=== PATIENT | female | born 1985 | race Caucasian/White ===

== ENCOUNTER → 2016-05-11 | Outpatient (CLI) | payer OTHER ==
[~2016-05-11] MED LIST: ESCI10TA PO; GABA600T PO; INFL1INJ53 IM; NICO14DI T-DERMAL; NICO21DI2 T-DERMAL; NICO7DIS2 T-DERMAL; PRENTAB85 PO
== END ==
LOC: HPND 13:29
PROVIDERS: ATTEND Family Medicine
DX: Z34.90 Encounter for supervision of normal pregnancy, unspecified, unspecified trimester (principal)
CPT/HCPCS: 76801

== ENCOUNTER → 2016-06-09 | Outpatient (CLI) | payer MEDICAID ==
[~2016-06-09] MED LIST changes: -ESCI10TA PO; -INFL1INJ53 IM; -NICO7DIS2 T-DERMAL
== END ==
LOC: HPND 10:55
PROVIDERS: ATTEND Family Medicine
DX: Z34.90 Encounter for supervision of normal pregnancy, unspecified, unspecified trimester (principal)
CPT/HCPCS: 36416; 76813

== ENCOUNTER → 2016-07-31 | Outpatient (CLI) | payer MEDICAID, OTHER | LOC: HPND 08:48 | PROVIDERS: ATTEND Family Medicine | DX: Z36 Encounter for antenatal screening of mother (principal) | CPT/HCPCS: 76805 ==

== ENCOUNTER → 2016-09-29 | Outpatient (CLI) | payer MEDICAID ==
[~2016-09-29] MED LIST changes: +GABA100C4 PO; -GABA600T PO; -NICO14DI T-DERMAL; -NICO21DI2 T-DERMAL; +ONDA1TAB17 PO; +TRAZ50TA12 PO
== END ==
LOC: HPND 13:23
PROVIDERS: ATTEND Family Medicine
DX: O35.1XX0 Maternal care for (suspected) chromosomal abnormality in fetus, not applicable or unspecified (principal)
CPT/HCPCS: 76816

== ENCOUNTER 2016-09-30 14:34 | Emergency (ER) | payer MEDICAID ==
[~2016-09-30 14:34] MED LIST changes: -ONDA1TAB17 PO
[2016-09-30 14:42] VITALS: BP 107/83
[2016-09-30 14:45] VITALS: RESP 18; TEMP 97.7
--- NOTE | 2016-09-30 14:46 | PD ---
HPI Chief Complaint N/V Date Seen: Sep 30, 2016 Time Seen: 14:50 Travel History International Travel<30 Days: No Contact w/Intl Traveler<30Days: No History of Present Illness HPI 31-year-old at 28/6 weeks gestation presenting with a 10 hour history of nausea and vomiting. Started this morning, nonbloody, nonbilious. Since then , she has vomited about 10 or more times. Denies vaginal bleeding, contractions , leakage of fluid. Endorses movement. She endorses low-grade fever starting this morning as well. Denies recent unusual exposure to foods, travel. She did use marijuana last night but denies use of any other substances. Review of systems is positive for diffuse pain (including chest pain, back pain, abdominal pain), mild shortness of breath. 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 History of IV drug use but has been clean for 2 years. Follows with a psychiatrist at [facility]. Smokes 1ppd x 14 years. No other drug or alcohol use. Alcohol Use: No Tobacco Use: Yes Substance Abuse: No (prior IVDU, clean for 2 years; marijuana use yesterday) Allergies-Medications (Allergen,Severity, Reaction): Coded Allergies: No Known Allergies (Verified , 09/17/16) Home Meds Active Scripts Ondansetron 8 Mg Tab8 Mg PO TID #30 TAB Ref 0 Prov:Chase Choudhury MD R1 09/30/16 Trazodone 50 Mg Tab50 Mg PO HS #30 TAB Ref 0 Prov:Soila Montilla MD R2 09/17/16 Gabapentin 100 Mg [id number] Mg PO TID #90 CAP Ref 3 Prov:Soila Montilla MD R2 09/17/16 Vit W/ Ferrous Fumara (Pnv Plus Multivi 27-1 mg)1 Tab Tab1 Tab PO DAILY #90 TAB Ref 4 Prov:Soila Montilla MD R2 04/29/16 Review of Systems Except as stated in HPI: all other systems reviewed are Neg Physical Exam Vital Signs Date Time Temp Pulse Resp B/P Pulse Ox O2 Delivery O2 Flow Rate FiO2 09/30/16 14:45 97.7 18 09/30/16 14:42 107/83 Current Medications Medications (Trade) Dose Ordered Sig/Marcela Route PRN Reason Start Time Stop Time Status Last Admin Dose Admin Lactated Ringer's (Lr 1000 ml Inj) 1,000 ml @ 999 mls/hr BOLUS ONCE IV 09/30/16 15:00 09/30/16 16:00 UNV Metoclopramide HCl (Reglan Inj) 10 mg ONCE ONCE IV PUSH 09/30/16 15:00 09/30/16 15:01 UNV Narrative GENERAL: Well-nourished, well-developed patient. SKIN: Warm and dry. HEAD: Normocephalic and atraumatic. EYES: No scleral icterus. No injection or drainage. ENT: No nasal drainage noted. Mucous membranes pink. Airway patent. CARDIOVASCULAR: Regular rate and rhythm without murmurs, gallops, or rubs. RESPIRATORY: Breath sounds equal bilaterally. No accessory muscle use. BACK: No CVA tenderness ABDOMEN/GI: Abdomen soft, mildly tender to palpation diffusely, no rebound, no guarding GENITOURINARY: Cervix: posterior Dilation: closed Effacement: thick Presentation: high Membranes: intact Contractions: none FHT's: 130s EXTREMITIES: No cyanosis or edema. NEUROLOGICAL: Awake and alert. Motor and sensory grossly within normal limits. Normal speech. Data Data Vital Signs Reviewed: Yes MDM Medical Record Reviewed: Yes Narrative Course / MDM 31-year-old at 28/6 weeks gestation presenting with nausea and vomiting #1 IUP heart tones reassuring #2 nausea/vomiting Differential diagnosis including gastroenteritis, urinary tract infection/ pyelonephritis, marijuana use, nausea and vomiting of UA negative Urine drug screen positive for marijuana - Reglan 10 mg IV - Lactated Ringer's 1000 mL bolus - 50 g fentanyl IV for pain #3 abdominal pain Differential diagnoses round ligament pain, substance abuse, UTI, malingering; not in labor Urinalysis negative -Treat pain as above Update: BMP within normal limits, patient improved clinically with Reglan and fluid bolus and fentanyl. Stable for discharge with Zofran tablets as needed, small frequent meals encouraged, marijuana cessation encouraged, follow-up with PCP Diagnosis Diagnosis: Primary Impression: Nausea and vomiting during Additional Impressions: Marijuana use Abdominal pain affecting Ruled Out: UTI (urinary tract infection), labor Disposition: 01 DISCHARGE HOME Condition: Stable Scripts Ondansetron 8 Mg Tab8 Mg PO TID #30 TAB Ref 0 Prov:Chase Choudhury MD R1 09/30/16 Patient Instructions: Nausea and Vomiting in (ED) Departure Forms: Tests/Procedures, Work Release Enter return to work date: Oct 02, 2016 Chase Choudhury MD R1 Sep 30, 2016 14:46
[2016-09-30] MEDS ORDERED: LACTATED RINGER'S 1000 ML INJ 1,000 ML IV ONE (15:00)
[2016-09-30] MEDS ORDERED: METOCLOPRAMIDE HCL 10 MG/2 ML VIAL IV PUSH ONE (15:00)
[2016-09-30 15:19] LABS: BACTERIA, URINE RARE /hpf; BLOOD, URINE NEG (NEG); COMMENT (UR) CULT NOT INDICATED; CULTURE IF INDICATED CULT NOT INDICATED; GLUCOSE,URINE NEG (NEG); KETONE, URINE NEG (NEG); NITRITE,URINE NEG (NEG); SQUAMOUS EPITHELIAL CELL URINE 2 /hpf (0-5); URINE COLOR YELLOW (YELLW/STRAW)
[2016-09-30 15:33] LABS: AMPHETAMINE, URINE NEG (NEG); BARBITURATES, URINE NEG (NEG); COCAINE, URINE NEG (NEG)
[2016-09-30] MEDS ORDERED: ONDA1TAB17 PO (15:44)
[2016-09-30 15:57] VITALS: BP 97/52; PULSE 64
[2016-09-30 15:58] LABS: BICARBONATE 23.3 MEQ/L (21.0-32.0)
[2016-10-07 11:44] LABS: OBMETHADONE UR NEG (NEG); PHENCYCLIDINE URINE NEG (NEG)
[2016-10-07 11:45] LABS: BATH SALTS (MDPV) UR NEG (NEG); ECSTASY (MDMA) UR NEG (NEG); HEROIN (6-ACETYLMORPHINE) UR NEG (NEG); K2 SPICE UR NEG (NEG); OXYCODONE (PERCODAN) NEG (NEG)
[2016-10-07 11:47] LABS: GABAPENTIN UR POS (NEG)
[2016-10-07 11:48] LABS: HYDROMORPHONE U NEG (NEG)
[2016-10-13] MEDS ORDERED: GABA100C4 PO (15:59)
[2016-10-13] MEDS ORDERED: TRAZ50TA12 PO (15:59)
[2016-10-13] MEDS ORDERED: ADACINJ3 IM (16:01)
[2016-10-13] MEDS ORDERED: ZOFR4TAB3 SL (16:03)
== END 2016-09-30 17:06 | disposition home or self-care (01) ==
LOC: HOBED 14:34
DX: O21.9 Vomiting of pregnancy, unspecified (principal); O99.321 Drug use complicating pregnancy, first trimester; R06.02 Shortness of breath; R07.9 Chest pain, unspecified; R10.9 Unspecified abdominal pain; M54.9 Dorsalgia, unspecified; K75.9 Inflammatory liver disease, unspecified; O99.333 Smoking (tobacco) complicating pregnancy, third trimester; Z79.899 Other long term (current) drug therapy
CPT/HCPCS: 36415; 80048; 80307; 81001; 96361; 96374; 96375; 99284; G0481; J2765; J3010; J7120

== ENCOUNTER 2016-10-15 16:25 | Emergency (ER) | payer MEDICAID ==
[~2016-10-15 16:25] MED LIST changes: +ONDA1TAB17 PO; +ZOFR4TAB3 SL
[2016-10-15 16:50] VITALS: BP 151/72; PULSE 68
[2016-10-15 16:55] VITALS: BP 111/86; PULSE 65; PULSE 71; O2SAT 100
[2016-10-15] MEDS ORDERED: LACTATED RINGER'S 1000 ML INJ 500 ML IV ONE (16:59)
[2016-10-15 17:00] VITALS: RESP 20
[2016-10-15] MEDS ORDERED: ONDANSETRON HCL 4 MG/2 ML VIAL IV ONE (17:00)
[2016-10-15] MEDS ORDERED: METOCLOPRAMIDE HCL 10 MG/2 ML VIAL IV PUSH ONE (17:00)
[2016-10-15] MEDS ORDERED: ACETAMINOPHEN 325 MG TAB PO ONE (17:00)
--- NOTE | 2016-10-15 17:32 | PD ---
HPI Chief Complaint Intractable nausea and vomiting, chest pain, abdominal pain Date Seen: Oct 15, 2016 Travel History International Travel<30 Days: No Contact w/Intl Traveler<30Days: No Known Affected Area: No History of Present Illness HPI Patient is a 31-year-old at 31 weeks and 0 days who presents with 2 weeks of nausea and vomiting, chest pain, abdominal pain. She reports that her symptoms started intermittently about 2 weeks ago. She tried smoking marijuana at that time, which did not help. She reports that the only thing that seemed to help her hot showers. She reports that her symptoms are on for a few hours and off maybe for an entire day. Today, she had nausea, vomiting, pain all day since 8 AM, so she decided to come in. She describes her chest pain as located around the neck and her abdominal pain as mostly epigastric but also diffuse. She describes her pain as burning and cramping. 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 She is in recovery at [facility]. She also has a history of hepatitis C. Obstetric History Obstetric History Patient is a . She reports that she has had 2 abortions, one miscarriage, one daughter who was born 2 weeks early via with a weight of 5 pounds and 8 ounces. Past Surgical History Narrative Surgical , cholecystectomy Family History Family History: Negative Social History Narrative Social History Patient reports smoking half a pack per day. Alcohol Use: No Tobacco Use: Yes Substance Abuse: No Allergies-Medications (Allergen,Severity, Reaction): Coded Allergies: No Known Allergies (Verified , 10/13/16) Home Meds Active Scripts Quetiapine XR (Seroquel XR)150 Mg [id number] Mg PO DAILY #60 TAB Ref 0 Take 150mg on first day then 300mg PO daily. Prov:Soila Montilla MD R2 10/15/16 Ondansetron Odt (Zofran Odt)4 Mg Tab4 Mg SL Q8HR PRN (Nausea/Vomiting) #30 TAB Ref 0 Prov:Soila Montilla MD R2 10/13/16 Gabapentin 100 Mg [id number] Mg PO TID #180 CAP Ref 3 Prov:Soila Montilla MD R2 10/13/16 Trazodone 50 Mg Tab50 Mg PO HS #30 TAB Ref 3 Prov:Soila Montilla MD R2 10/13/16 Ondansetron 8 Mg Tab8 Mg PO TID #30 TAB Ref 0 Prov:Chase Choudhury MD R1 09/30/16 Vit W/ Ferrous Fumara (Pnv Plus Multivi 27-1 mg)1 Tab Tab1 Tab PO DAILY #90 TAB Ref 4 Prov:Soila Montilla MD R2 04/29/16 Discontinued Scripts Olanzapine 10 Mg Tab10 Mg PO DAILY #30 TAB Ref 0 Prov:Soila Montilla MD R2 10/15/16 Trazodone 50 Mg Tab50 Mg PO HS #30 TAB Ref 0 Prov:Soila Montilla MD R2 09/17/16 Gabapentin 100 Mg [id number] Mg PO TID #90 CAP Ref 3 Prov:Soila Montilla MD R2 09/17/16 Review of Systems General / Constitutional: No: Fever Cardiovascular: Chest Pain or Discomfort Gastrointestinal: Nausea, Vomiting, Abdominal Pain Physical Exam 111/86, 65-70, 98.3, 99-100% on room air Narrative GENERAL: Well-nourished, well-developed patient. SKIN: Warm and dry. HEAD: Normocephalic and atraumatic. EYES: No scleral icterus. No injection or drainage. ENT: No nasal drainage noted. Mucous membranes pink. Airway patent. NECK: Supple, trachea midline. No JVD. CARDIOVASCULAR: Regular rate and rhythm without murmurs, gallops, or rubs. RESPIRATORY: Breath sounds equal bilaterally. No accessory muscle use. ABDOMEN/GI: Abdomen soft, non-tender, bowel sounds present, no rebound, no guarding Gravid to 31 weeks size GENITOURINARY: External Genitalia: intact and normal in appearance Cervix: posterior Dilatation: closed Effacement: thick Station: -3 Membranes: [intact] Uterine Contractions: none FHT's: difficult to trace 2/2 pt movement Category: Cat I Baseline: 125 Reactive: reactive Variability: moderate Decels: none EXTREMITIES: No cyanosis or edema. BACK: Nontender without obvious deformity. No CVA tenderness. NEUROLOGICAL: Awake and alert. Motor and sensory grossly within normal limits. Five out of 5 muscle strength in all muscle groups. Normal speech. Data Data Vital Signs Reviewed: Yes Orders Vital Signs (Adult) .ON ADMISSION (10/15/16 16:59) ^ Labor Status (10/15/16 16:59) Urinalysis - C+S If Indicated (10/15/16 16:59) ^ Non Stress Test (10/15/16 16:59) ^ Hydration (10/15/16 16:59) Acetaminophen (Tylenol) (10/15/16 17:00) Ondansetron Inj (Zofran Inj) (10/15/16 17:00) Ob/Psych Drug Screen, Urine (10/15/16 16:59) Drug Screen, Random Urine (10/15/16 16:59) Metoclopramide Inj (Reglan Inj) (10/15/16 17:00) Lactated Ringer's 1000 Ml Inj (Lr 1000 M (10/15/16 16:59) Fentanyl Inj (Fentanyl Inj) (10/15/16 17:15) MDM Plan Patient is a 31-year-old at 31 weeks and 0 days with a 2 year history of being in recovery for opiates and alcohol who presents with 2 weeks of nausea and vomiting, chest pain, abdominal pain. 1. nausea and vomiting, chest pain, abdominal pain. UDS UA LR IV bolus Tylenol PO If ineffective, fentanyl 25 g IV Zofran and Reglan IV Monitor vital signs Monitor labor status Monitor heart rate Seen and discussed with Dr. Vasquez. D/w Dr. Montilla. Decided to give Seroquel 50mg po x1 and f/u tomorrow in clinic. Diagnosis Diagnosis: Primary Impression: Intractable nausea and vomiting Additional Impressions: Abdominal pain Abdominal pain affecting Ruled Out: labor Disposition: 01 DISCHARGE HOME Condition: Dhiraj Rizzo MD R1 Oct 15, 2016 17:32
[2016-10-15] MEDS ORDERED: OLAN10TA PO (17:47)
[2016-10-15] MEDS ORDERED: QUET150XR PO (17:54)
[2016-10-15] MEDS ORDERED: QUEtiapine FUMARATE 25 MG TAB PO ONE (18:00)
[2016-10-15 18:32] VITALS: RESP 18
[2016-10-15 19:24] LABS: BLOOD, URINE NEG (NEG); COMMENT (UR) CULT NOT INDICATED; CULTURE IF INDICATED CULT NOT INDICATED; GLUCOSE,URINE NEG (NEG); KETONE, URINE 150 mg/dL (NEG); NITRITE,URINE NEG (NEG); SQUAMOUS EPITHELIAL CELL URINE 5 /hpf (0-5); URINE COLOR YELLOW (YELLW/STRAW)
[2016-10-15 19:47] LABS: AMPHETAMINE, URINE NEG (NEG); BARBITURATES, URINE NEG (NEG); COCAINE, URINE NEG (NEG)
[2016-10-16] MEDS ORDERED: GABA300C5 PO (16:02)
[2016-10-20] MEDS ORDERED: AUGM500T7 PO (14:48)
[2016-10-21 12:01] LABS: ECSTASY (MDMA) UR NEG (NEG); HEROIN (6-ACETYLMORPHINE) UR NEG (NEG); OBMETHADONE UR NEG (NEG); PHENCYCLIDINE URINE NEG (NEG)
[2016-10-21 12:02] LABS: BATH SALTS (MDPV) UR NEG (NEG); GABAPENTIN UR POS (NEG); HYDROMORPHONE U NEG (NEG); K2 SPICE UR NEG (NEG); OXYCODONE (PERCODAN) NEG (NEG)
== END 2016-10-15 18:51 | disposition home or self-care (01) ==
LOC: HOBED 16:25
DX: O21.9 Vomiting of pregnancy, unspecified (principal); O26.899 Other specified pregnancy related conditions, unspecified trimester; R10.9 Unspecified abdominal pain; R07.9 Chest pain, unspecified; B19.20 Unspecified viral hepatitis C without hepatic coma; O99.333 Smoking (tobacco) complicating pregnancy, third trimester; Z3A.31 31 weeks gestation of pregnancy; Z79.899 Other long term (current) drug therapy
CPT/HCPCS: 80307; 81001; 96374; 96375; 99284; G0481; J2405; J2765; J3010; J7120

== ENCOUNTER 2016-10-22 17:54 | Emergency (ER) | payer MEDICAID ==
[~2016-10-22 17:54] MED LIST changes: +AUGM500T7 PO; -GABA100C4 PO; +GABA300C5 PO; +QUET150XR PO
--- NOTE | 2016-10-22 19:14 | PD ---
HPI Chief Complaint Abdominal pain, low back pain, cough Date Seen: Oct 22, 2016 Time Seen: 19:00 Travel History International Travel<30 Days: No Contact w/Intl Traveler<30Days: No Known Affected Area: No History of Present Illness HPI Michelle Villagran is a very pleasant 31 year old woman at 32/0 weeks gestation presents to OB ED with complaints of a cough since this past Wednesday and abdominal and low back pain since yesterday. She states she was seen at [facility] this past Wednesday and felt fine without a cough. Later that day she started to develop a cough; she states this has been productive sometimes with green phlegm. Does endorse some SOB and nasal congestion. Denies fevers. She states her abdominal pain is located laterally on both sides and she is also feeling low back pain slightly worse than her baseline low back pain. She denies dysuria , frequency, or urgency. She denies LOF or VB. Endorses +FM. 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 She is in recovery at [facility] [employer]. She also has a history of hepatitis C. Obstetric History Obstetric History Patient is a . She reports that she has had 2 abortions, one miscarriage, one daughter who was born 2 weeks early via with a weight of 5 pounds and 8 ounces. Past Surgical History Narrative Surgical , cholecystectomy Family History Family History: Negative Social History Alcohol Use: No Tobacco Use: Yes (Admits to smoking 1/2 PPD) Substance Abuse: No Allergies-Medications (Allergen,Severity, Reaction): Coded Allergies: No Known Allergies (Verified , 10/20/16) Home Meds Active Scripts Loratadine (Claritin)10 Mg Cap10 Mg PO DAILY #7 CAP Ref 0 Prov:Jackson Nunez MD R2 10/22/16 Hydrocodone-Chlorpheniramine 12 HR Liq (Tussionex Pennkinetic Ext 12 HR Liq)10- 8 Mg/5 Ml Susp2.5 Ml PO Q12H PRN (COUGH AND/OR COLD SYMPTOMS) #25 ML Ref 0 Prov:Jackson Nunez MD R2 10/22/16 Azithromycin (Zithromax Z-Simon)250 Mg [id number] Mg PO DIRECTED #1 DSPK Ref 0 500 MG (2 tabs) day 1, then 1 tab days 2-5. Prov:Jackson Nunez MD R2 10/22/16 Amoxicillin-Clavulanate (Augmentin)500-125 mg [id number] Mg PO BID #14 TAB Ref 0 Prov:Soila Montilla MD, R3 10/20/16 Gabapentin 300 Mg [id number] Mg PO TID #90 CAP Ref 3 Prov:Soila Montilla MD, R3 10/16/16 Quetiapine XR (Seroquel XR)150 Mg [id number] Mg PO DAILY #60 TAB Ref 0 Take 150mg on first day then 300mg PO daily. Prov:Soila Montilla MD, R3 10/15/16 Ondansetron Odt (Zofran Odt)4 Mg Tab4 Mg SL Q8HR PRN (Nausea/Vomiting) #30 TAB Ref 0 Prov:Soila Montilla MD, R3 10/13/16 Trazodone 50 Mg Tab50 Mg PO HS #30 TAB Ref 3 Prov:Soila Montilla MD, R3 10/13/16 Ondansetron 8 Mg Tab8 Mg PO TID #30 TAB Ref 0 Prov:Chase Choudhury MD R2 09/30/16 Vit W/ Ferrous Fumara (Pnv Plus Multivi 27-1 mg)1 Tab Tab1 Tab PO DAILY #90 TAB Ref 4 Prov:Soila Montilla MD, R3 04/29/16 Discontinued Scripts Gabapentin 300 Mg [id number] Mg PO TID #90 CAP Ref 3 Prov:Soila Montilla MD, R3 10/16/16 Gabapentin 100 Mg [id number] Mg PO TID #180 CAP Ref 3 Prov:Soila Montilla MD, R3 10/13/16 Olanzapine 10 Mg Tab10 Mg PO DAILY #30 TAB Ref 0 Prov:Soila Montilla MD, R3 10/15/16 Review of Systems General / Constitutional: No: Fever HENT: No: Headaches Respiratory: Cough, Short of Breath, No: Wheezing Gastrointestinal: Abdominal Pain Genitourinary: No: Urgency, Frequency, Dysuria Physical Exam Narrative GENERAL: Well-nourished, well-developed patient. SKIN: Warm and dry. HEAD: Normocephalic and atraumatic. EYES: No scleral icterus. No injection or drainage. ENT: No nasal drainage noted. Mucous membranes pink. Airway patent. NECK: Supple, trachea midline. No JVD. CARDIOVASCULAR: Regular rate and rhythm without murmurs, gallops, or rubs. RESPIRATORY: Rhonchi left lower and left mid lung field. Scattered expiratory wheezing. No increased WOB. ABDOMEN/GI: Abdomen soft, non-tender, no rebound, no guarding Gravid to 32 weeks size GENITOURINARY: External Genitalia: [-] Cervix: [-] Dilatation: [-] Effacement: [-] Station: [-] Presentation: [-] Membranes: [intact] Uterine Contractions: none on tocometer FHT's: Category: I Baseline: 120s Reactive: yes Variability: moderate Decels: none EXTREMITIES: No cyanosis or edema. BACK: Nontender without obvious deformity. No CVA tenderness. NEUROLOGICAL: Awake and alert. Motor and sensory grossly within normal limits. Normal speech. Data Data Vital Signs Reviewed: Yes Orders Vital Signs (Adult) .ON ADMISSION (10/22/16 19:10) ^ Labor Status (10/22/16 19:10) ^ Hydration (10/22/16 19:10) MDM Medical Record Reviewed: Yes Plan Very pleasant 31 year old woman at 32/0 weeks gestation presented with complaints of a productive cough x3 days in addition to abdominal and low back pain x1 day. Patient with rhonchi left lung covarrubias. 1. Pneumonia - Prescribe Z-pack - Will give prescription for Tussionex for relief of cough and Claritin for URI symptoms - Follow up with PCP Dr. Montilla next routine visit - Encouraged adequate PO hydration - Advised calling [facility] or return visit to OB ED if symptoms worsen 2. IUP - Category I tracing - No contractions on tocometer - No LOF or VB. +FM. 3. Low back pain - Urine dipstick negative - Tylenol prn pain dw Dr. Vasquez; sdw Dr. Padilla Diagnosis Diagnosis: Primary Impression: Pneumonia Additional Impression: Low back pain Disposition: 01 DISCHARGE HOME Condition: Stable Scripts Loratadine (Claritin)10 Mg Cap10 Mg PO DAILY #7 CAP Ref 0 Prov:Jackson Nunez MD R2 10/22/16 Azithromycin (Zithromax Z-Simon)250 Mg [id number] Mg PO DIRECTED #1 DSPK Ref 0 500 MG (2 tabs) day 1, then 1 tab days 2-5. Prov:Jackson Nunez MD R2 10/22/16 Hydrocodone-Chlorpheniramine 12 HR Liq (Tussionex Pennkinetic Ext 12 HR Liq)10- 8 Mg/5 Ml Susp2.5 Ml PO Q12H PRN (COUGH AND/OR COLD SYMPTOMS) #25 ML Ref 0 Prov:Jackson Nunez MD R2 10/22/16 Jackson Nunez MD R2 Oct 22, 2016 19:14
[2016-10-22] MEDS ORDERED: ZITHTAB PO ×2 (19:34→19:42)
[2016-10-22] MEDS ORDERED: TUSSSUS2 PO (19:34)
[2016-10-22] MEDS ORDERED: CLAR10CA3 PO ×2 (19:34→19:42)
[2016-11-13] MEDS ORDERED: QUET150XR PO (16:17)
[2016-11-18] MEDS ORDERED: QUET150XR PO (13:43)
[2016-11-19] MEDS ORDERED: QUET150XR PO (13:36)
[2016-11-20] MEDS ORDERED: CEPH-460 PO (09:43)
[2016-12-02] MEDS ORDERED: QUET-89 PO (14:29)
[2016-12-03] MEDS ORDERED: ONDA1TAB17 PO (13:57)
[2016-12-03] MEDS ORDERED: PANT40TA3 PO (13:57)
[2016-12-23] MEDS ORDERED: LITH300C2 PO (10:48)
[2016-12-23] MEDS ORDERED: GABA800T PO (10:51)
[2016-12-23] MEDS ORDERED: NORE1TAB PO (10:53)
== END 2016-10-22 19:47 | disposition home or self-care (01) ==
LOC: HOBED 17:54
DX: O99.513 Diseases of the respiratory system complicating pregnancy, third trimester (principal); J18.9 Pneumonia, unspecified organism; O98.413 Viral hepatitis complicating pregnancy, third trimester; B19.20 Unspecified viral hepatitis C without hepatic coma; O99.333 Smoking (tobacco) complicating pregnancy, third trimester; F17.200 Nicotine dependence, unspecified, uncomplicated; M54.5 Low back pain; Z3A.32 32 weeks gestation of pregnancy
CPT/HCPCS: 99284

== ENCOUNTER 2016-11-25 17:56 | Emergency (ER) | payer MEDICAID ==
[~2016-11-25] VITALS: Ht 162.6 cm; Wt 59.4 kg
[~2016-11-25 17:56] MED LIST changes: -AUGM500T7 PO; +CEPH-460 PO
--- NOTE | 2016-11-25 19:52 | PD ---
HPI Travel History International Travel<30 Days: No Contact w/Intl Traveler<30Days: No Known Affected Area: No History of Present Illness HPI at 36w 6d, DELFINO 10, presents with c/o lower abdominal pressure and decreased movement. Reports movement upon arrival to [facility]. Denies contractions/LOF/VB. No urinary or bowel problems. Para: 1 : 5 Allergies-Medications (Allergen,Severity, Reaction): Coded Allergies: No Known Allergies (Verified , 11/25/16) Home Meds Active Scripts Cephalexin (Keflex) 500 Mg Capsule, 500 MG PO BID for Infection, #14 CAP 0 Refills Prov:Ladan Irwin MD R3 11/20/16 Quetiapine XR (Seroquel XR) 150 Mg Tab, 300 MG PO DAILY, #60 TAB 3 Refills Take 300mg by mouth daily Prov:Soila Montilla MD, R3 11/18/16 Gabapentin (Gabapentin) 300 Mg Cap, 300 MG PO TID, #90 CAP 3 Refills Prov:Soila Montilla MD, R3 10/16/16 Ondansetron Odt (Zofran Odt) 4 Mg Tab, 4 MG SL Q8HR Y for Nausea/Vomiting, #30 TAB 0 Refills Prov:Soila Montilla MD, R3 10/13/16 Trazodone (Trazodone) 50 Mg Tab, 50 MG PO HS for Control Depression, #30 TAB 3 Refills Prov:Soila Montilla MD, R3 10/13/16 Ondansetron (Ondansetron) 8 Mg Tab, 8 MG PO TID for Nausea/Vomiting, #30 TAB 0 Refills Prov:Chase Choudhury MD R2 09/30/16 Vit W/ Ferrous Fumara (Pnv Plus Multivi 27-1 mg) 1 Tab Tab, 1 TAB PO DAILY, #90 TAB 4 Refills Prov:Soila Montilla MD, R3 04/29/16 Discontinued Scripts Quetiapine XR (Seroquel XR) 150 Mg Tab, 150 MG PO DAILY, #30 TAB 0 Refills Prov:Soila Montilla MD, R3 11/19/16 Quetiapine XR (Seroquel XR) 150 Mg Tab, 300 MG PO DAILY, #60 TAB 3 Refills Take 300mg by mouth daily Prov:Soila Montilla MD, R3 11/13/16 Physical Exam AFVSS BP 122/71 Narrative GENERAL: Well-nourished, well-developed patient. SKIN: Warm and dry. HEAD: Normocephalic and atraumatic. EYES: No scleral icterus. No injection or drainage. ENT: No nasal drainage noted. Mucous membranes pink. Airway patent. NECK: Supple, trachea midline. No JVD. CARDIOVASCULAR: Regular rate and rhythm without murmurs, gallops, or rubs. RESPIRATORY: Breath sounds equal bilaterally. No accessory muscle use. BREASTS: Bilateral exam showed no masses , no retractions, no nipple discharge. ABDOMEN/GI: Abdomen soft, non-tender, bowel sounds present, no rebound, no guarding Gravid to [-] weeks size Fundal Height: [-] GENITOURINARY: External Genitalia: intact and normal in appearance BUS glands: [-] Cervix: [-] Dilatation: [1] Effacement: [50] Station: [-3] Presentation: [-] Membranes: [intact or ruptured] Uterine Contractions: [-] FHT's: Category: [1] Baseline: [130s] Reactive: [yes] Variability: [moderate] Decels: [none] EXTREMITIES: No cyanosis or edema. BACK: Nontender without obvious deformity. No CVA tenderness. NEUROLOGICAL: Awake and alert. Motor and sensory grossly within normal limits. Five out of 5 muscle strength in all muscle groups. Normal speech. MDM Interpretation(s) IUP at 36w 6d, decreased movement, abdominal pressure. Plan Will monitor and recheck. Will d/c home if no cervical change. Labor precautions given. Keep scheduled OB appt tomorrow. All questions answered. Diagnosis Diagnosis: Primary Impression: 36 weeks gestation of Additional Impressions: Decreased movement affecting management of in third trimester False labor before 37 completed weeks of gestation Disposition: 01 DISCHARGE HOME Condition: Good Jia Jones MD Nov 25, 2016 19:52
[2016-12-02] MEDS ORDERED: QUET-89 PO (14:29)
[2016-12-03] MEDS ORDERED: ONDA1TAB17 PO (13:57)
[2016-12-03] MEDS ORDERED: PANT40TA3 PO (13:57)
[2016-12-23] MEDS ORDERED: LITH300C2 PO (10:48)
[2016-12-23] MEDS ORDERED: GABA800T PO (10:51)
[2016-12-23] MEDS ORDERED: NORE1TAB PO (10:53)
== END 2016-11-25 21:32 | disposition home or self-care (01) ==
LOC: HOBED 17:56
DX: O36.8130 Decreased fetal movements, third trimester, not applicable or unspecified (principal); O47.03 False labor before 37 completed weeks of gestation, third trimester; Z3A.36 36 weeks gestation of pregnancy
CPT/HCPCS: 99283

== ENCOUNTER 2016-11-29 01:11 | Emergency (ER) | payer MEDICAID ==
[2016-11-29 01:30] VITALS: TEMP 97.8
[2016-11-29 02:14] VITALS: RESP 18
[2016-11-29 02:15] VITALS: PULSE 108
[2016-11-29 02:20] VITALS: PULSE 105
--- NOTE | 2016-11-29 02:21 | PD ---
HPI Chief Complaint Vaginal spotting and low back pain Date Seen: Nov 29, 2016 Time Seen: 01:56 (Angela Christy MD R2) Travel History International Travel<30 Days: No Contact w/Intl Traveler<30Days: No (Angela Christy MD R2) History of Present Illness HPI Patient is a 31 year old at 37 and 3/7 weeks gestation, DELFINO 12/17/2016, who presents to the OB ED with vaginal spotting and low back pain. Last sexual intercourse occurred at 8:30 PM just prior to onset of her symptoms. She denies leakage of fluid. Contractions irregular at this time. She feels baby moving regularly. She denies HERRERA/N/V/D/fever/sick contacts/SOB/calf pain/dizziness/ seeing spots. OB care is with Dr. Soila Montilla and last clinical visit was . Patient does have a history of bipolar disorder and hepatitis C. She has had marijuana uses . She continues to smoke at least half a pack a day of cigarettes. She does endorse hard stools, with last bowel mvt yesterday but small volume. Per patient, she has not had GBS testing yet. Weeks Gestation: 37 Para: 1 : 5 Last Menstrual Period: Nov 29, 2016 (Angela Christy MD R2) HPI Patient seen and evaluated with resident under direct supervision, agree with assessment and plan. (Enmanuel Quinonez MD) History Past Medical History Narrative Medical PMH: Hepatitis C History of IV drug use, clean 2 years MDD Abnormal Pap in 2011 with colposcopy Obstetric history: CXN in 2008 for indication in [place] Elective x 2 in 2001, 2004 Miscarriage at 10 weeks in 2007 Surgical Hx: Cholecystectomy 2012 for indications 2008 Family History: Mother: Healthy Father: Healthy No family history of significant genetic diseases. 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 History of IV drug use but has been clean for 2 years. Follows with a psychiatrist at [facility]. Smokes 1ppd x 14 years. No other drug or alcohol use. (Angela Christy MD R2) Social History Alcohol Use: No Tobacco Use: Yes (half pack per day) Substance Abuse: No (Angela Christy MD R2) Allergies-Medications (Allergen,Severity, Reaction): Coded Allergies: No Known Allergies (Verified , 11/26/16) Home Meds Active Scripts Acetaminophen ER 8 HR (Mapap Arthritis Pain ER 8 HR) 650 Mg Tab, 650 MG PO Q6HR Y for PAIN, #30 TAB 0 Refills Prov:Angela Christy MD R2 11/29/16 Lactulose (Lactulose) 10 Gram/15 Ml (15 Ml) Solution, 10 GM PO DAILY Y for CONSTIPATION, #16 OZ Prov:Angela Christy MD R2 11/29/16 Cephalexin (Keflex) 500 Mg Capsule, 500 MG PO BID for Infection, #14 CAP 0 Refills Prov:Ladan Irwin MD R3 11/20/16 Quetiapine XR (Seroquel XR) 150 Mg Tab, 300 MG PO DAILY, #60 TAB 3 Refills Take 300mg by mouth daily Prov:Soila Montilla MD, R3 11/18/16 Gabapentin (Gabapentin) 300 Mg Cap, 300 MG PO TID, #90 CAP 3 Refills Prov:Soila Montilla MD, R3 10/16/16 Ondansetron Odt (Zofran Odt) 4 Mg Tab, 4 MG SL Q8HR Y for Nausea/Vomiting, #30 TAB 0 Refills Prov:Soila Montilla MD, R3 10/13/16 Trazodone (Trazodone) 50 Mg Tab, 50 MG PO HS for Control Depression, #30 TAB 3 Refills Prov:Soila Montilla MD, R3 10/13/16 Ondansetron (Ondansetron) 8 Mg Tab, 8 MG PO TID for Nausea/Vomiting, #30 TAB 0 Refills Prov:Chase Choudhury MD R2 09/30/16 Vit W/ Ferrous Fumara (Pnv Plus Multivi 27-1 mg) 1 Tab Tab, 1 TAB PO DAILY, #90 TAB 4 Refills Prov:Soila Montilla MD, R3 04/29/16 Discontinued Scripts Quetiapine XR (Seroquel XR) 150 Mg Tab, 150 MG PO DAILY, #30 TAB 0 Refills Prov:Soila Montilla MD, R3 11/19/16 Review of Systems Except as stated in HPI: all other systems reviewed are Neg (Angela Christy MD R2) Physical Exam Narrative GENERAL: Well-nourished, well-developed female in no apparent distress. She appears anxious. SKIN: Warm and dry. No rashes. HEAD: Normocephalic and atraumatic. EYES: No scleral icterus. No injection or drainage. ENT: No nasal drainage noted. Mucous membranes pink. Airway patent. NECK: Supple, trachea midline. No JVD. CARDIOVASCULAR: Regular rate and rhythm without murmurs, gallops, or rubs. RESPIRATORY: Breath sounds equal bilaterally. No accessory muscle use. ABDOMEN/GI: Abdomen soft, non-tender, bowel sounds present, no rebound, no guarding Gravid to 36 weeks size GENITOURINARY: External Genitalia: intact and normal in appearance Cervix: Fingertip external os, closed internal os, 40% effaced, -3 station, posterior Sterile speculum exam reveals dry vaginal wall with small fissure at approximately 9oclock distally. Cervix shows evidence of previous biopsies, with mucous plug intact. No active bleeding noted. Membranes: [intact or ruptured] Uterine Contractions: Irregular + irritability, every 5-7 minutes FHT's: Category:1, baseline 110, reactive to 150, moderate variability, no decelerations EXTREMITIES: No cyanosis or edema. BACK: Nontender without obvious deformity. No CVA tenderness. NEUROLOGICAL: Awake and alert. Motor and sensory grossly within normal limits. Five out of 5 muscle strength in all muscle groups. Normal speech. (Angela Christy MD R2) Data Data Vital Signs Reviewed: Yes (BP 120/71, pulse 81, respirations 16, temperature 98.0F) Orders Orders Vital Signs (Adult) .ON ADMISSION (11/29/16 01:38) ^ Labor Status (11/29/16 01:38) ^ Non Stress Test (11/29/16 01:38) ^ Hydration (11/29/16 01:38) (Angela Christy MD R2) MDM Medical Record Reviewed: Yes Interpretation(s) Urine dipstick performed in ED showing specific gravity 1.010, pH 7.0, no blood , no protein, negative nitrites, trace leukocyte esterase. Visually, it is clear light yellow in appearance. Narrative Course / MDM 31 year old at 37 and 3/7 weeks gestation, DELFINO 12/17/2016, who presents to the OB ED with vaginal spotting and low back pain. Last sexual intercourse occurred at 8:30 PM just prior to onset of her symptoms. Vaginal exam showing vaginal fissure which may be source of her spotting. Cervical exam shows no labor. Abdominal pain likely related to Suhail Blanco and round ligament pain. Urine dipstick negative for abnormalities. She's being treated for UTI as an outpatient, and is counseled to continue antibiotics. Will rehydrate and discharged home, counseled to avoid sexual intercourse while fissure is healing. For abdominal pain offered patient Tylenol x 1, which she agreed to. She was given script for Tylenol and told to get it OTC. She was also given script for lactulose per her request and patient advised on diet management. She had care appt this , and patient reminded to ask about GBS swab. Has a consultation scheduled for Wednesday, which she is counseled to keep. Patient was discussed with Dr. Quinonez who agrees with plan of care. (Angela Christy MD R2) Diagnosis Diagnosis: Primary Impression: False labor after 37 completed weeks of gestation Additional Impression: Constipation during Disposition: DISCHARGE HOME Condition: Stable Scripts Acetaminophen ER 8 HR (Mapap Arthritis Pain ER 8 HR) 650 Mg Tab 650 MG PO Q6HR Y for PAIN, #30 TAB 0 Refills Prov: Angela Christy MD R2 11/29/16 Lactulose (Lactulose) 10 Gram/15 Ml (15 Ml) Solution 10 GM PO DAILY Y for CONSTIPATION, #16 OZ Prov: Angela Christy MD R2 11/29/16 Patient Instructions: Abdominal Pain in (ED), Urinary Tract Infection in (ED) Angela Christy MD R2 Nov 29, 2016 02:20 Enmanuel Quinonez MD Nov 29, 2016 08:24
[2016-11-29 02:25] VITALS: PULSE 104
[2016-11-29 02:30] VITALS: PULSE 101
[2016-11-29] MEDS ORDERED: MAPA650T PO (02:39)
[2016-11-29] MEDS ORDERED: LACT10SO5 PO (02:39)
[2016-11-29] MEDS ORDERED: ACETAMINOPHEN 325 MG TAB PO ONE (02:45)
[2016-12-02] MEDS ORDERED: QUET-89 PO (14:29)
[2016-12-03] MEDS ORDERED: PANT40TA3 PO (13:57)
[2016-12-03] MEDS ORDERED: ONDA1TAB17 PO (13:57)
[2016-12-23] MEDS ORDERED: LITH300C2 PO (10:48)
[2016-12-23] MEDS ORDERED: GABA800T PO (10:51)
[2016-12-23] MEDS ORDERED: NORE1TAB PO (10:53)
== END 2016-11-29 02:50 | disposition home or self-care (01) ==
LOC: HOBED 01:11
DX: O47.1 False labor at or after 37 completed weeks of gestation (principal); Z3A.37 37 weeks gestation of pregnancy; K59.00 Constipation, unspecified; Z72.0 Tobacco use
CPT/HCPCS: 59025

== ENCOUNTER 2016-12-11 10:40 | Inpatient (IN) | payer MEDICAID ==
[2016-12-11] VITALS (14 sets, daily range): BP systolic 121–152; BP diastolic 67–87; PULSE 47–119; RESP 14–26; TEMP 96.6–98; O2SAT 100
[~2016-12-11 10:40] MED LIST changes: -CEPH-460 PO; +LACT10SO5 PO; +MAPA650T PO; +PANT40TA3 PO; +QUET-89 PO; -QUET150XR PO; -ZOFR4TAB3 SL
--- NOTE | 2016-12-11 11:43 | HHI.HP ---
HPI Chief Complaint Repeat Date Seen: Dec 11, 2016 Travel History International Travel<30 Days: No Contact w/Intl Traveler<30Days: No History of Present Illness HPI Patient is a 31 year old at 39-1/7 weeks gestation who presents today for repeat . She is having occasional contractions but denies any vaginal bleeding or discharge. No gush or leaking of fluid. Positive movement. complicated by bipolar disorder for which the patient takes Seroquel, Gabapentin and Trazodone. 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 Follows with a psychiatrist at [facility]. Smokes 1ppd x 14 years. No other drug or alcohol use. Alcohol Use: No Tobacco Use: Yes (1/2-1ppd) Substance Abuse: No Allergies-Medications (Allergen,Severity, Reaction): Coded Allergies: No Known Allergies (Verified , 12/09/16) Home Meds Active Scripts Pantoprazole (Pantoprazole) 40 Mg Tab, 40 MG PO DAILY for Reflux, #30 TAB 3 Refills Prov:Soila Montilla MD, R3 12/03/16 Ondansetron (Ondansetron) 8 Mg Tab, 8 MG PO TID for Nausea/Vomiting, #30 TAB 0 Refills Prov:Soila Montilla MD, R3 12/03/16 Quetiapine ER (Quetiapine ER) 300 Mg Tab, 300 MG PO DAILY, #30 TAB 3 Refills Prov:Soila Montilla MD, R3 12/02/16 Acetaminophen ER 8 HR (Mapap Arthritis Pain ER 8 HR) 650 Mg Tab, 650 MG PO Q6HR Y for PAIN, #30 TAB 0 Refills Prov:Angela Christy MD R2 11/29/16 Lactulose (Lactulose) 10 Gram/15 Ml (15 Ml) Solution, 10 GM PO DAILY Y for CONSTIPATION, #16 OZ Prov:Angela Christy MD R2 11/29/16 Gabapentin (Gabapentin) 300 Mg Cap, 300 MG PO TID, #90 CAP 3 Refills Prov:Soila Montilla MD, R3 10/16/16 Trazodone (Trazodone) 50 Mg Tab, 50 MG PO HS for Control Depression, #30 TAB 3 Refills Prov:Soila Montilla MD, R3 10/13/16 Vit W/ Ferrous Fumara (Pnv Plus Multivi 27-1 mg) 1 Tab Tab, 1 TAB PO DAILY, #90 TAB 4 Refills Prov:Soila Montilla MD, R3 04/29/16 Review of Systems Except as stated in HPI: all other systems reviewed are Neg General / Constitutional: No: Fever, Chills Eyes: No: Blurred Vision, Visual changes HENT: No: Headaches Cardiovascular: No: Chest Pain or Discomfort Respiratory: No: Cough, Short of Breath Gastrointestinal: Nausea, No: Vomiting, Abdominal Pain Genitourinary: Pelvic Pain, No: Dysuria, Discharge, Vaginal Bleeding Musculoskeletal: No: Edema Neurologic: No: Headache Psychiatric: Substance Abuse (tobacco) Physical Exam Narrative GENERAL: Well-nourished, well-developed patient. SKIN: Warm and dry. HEAD: Normocephalic and atraumatic. EYES: No scleral icterus. No injection or drainage. ENT: No nasal drainage noted. Mucous membranes pink. Airway patent. NECK: Supple, trachea midline. No JVD. CARDIOVASCULAR: Regular rate and rhythm without murmurs, gallops, or rubs. RESPIRATORY: Breath sounds equal bilaterally. No accessory muscle use. ABDOMEN/GI: Abdomen soft, non-tender, bowel sounds present, no rebound, no guarding Gravid to 39 weeks size GENITOURINARY: External Genitalia: intact and normal in appearance Presentation: vertex Membranes: intact Uterine Contractions: occ FHT's: Category: I Baseline: 125 Reactive: + Variability: moderate Decels: none EXTREMITIES: No cyanosis or edema. BACK: Nontender without obvious deformity. NEUROLOGICAL: Awake and alert. Motor and sensory grossly within normal limits. Normal speech. Caprini VTE Risk Assessment Caprini VTE Risk Assessment: No/Low Risk (score <= 1) Caprini Risk Assessment Model Point Value = 1 Point Value = 2 Point Value = 3 Point Value = 5 Age 41-60 Minor surgery BMI > 25 kg/m2 Swollen legs Varicose veins or History of unexplained or recurrent spontaneous Oral contraceptives or hormone replacement Sepsis (< 1 month) Serious lung disease, including pneumonia (< 1 month) Abnormal pulmonary function Acute myocardial infarction Congestive heart failure (< 1 month) History of inflammatory bowel disease Medical patient at bed rest Age 61-74 Arthroscopic surgery Major open surgery (> 45 min) Laparoscopic surgery (> 45 min) Malignancy Confined to bed (> 72 hours) Immobilizing plaster cast Central venous access Age >= 75 History of VTE Family history of VTE Factor V Leiden Prothrombin [id number] Lupus anticoagulant Anticardiolipin antibodies Elevated serum homocysteine Heparin-induced thrombocytopenia Other congenital or acquired thrombophilia Stroke (< 1 month) Elective arthroplasty Hip, pelvis, or leg fracture Acute spinal cord injury (< 1 month) Prophylaxis Regimen Total Risk Factor Score Risk Level Prophylaxis Regimen 0-1 Low Early ambulation 2 Moderate Order ONE of the following: *Sequential Compression Device (SCD) *Heparin 5000 units SQ BID 3-4 Higher Order ONE of the following medications: *Heparin 5000 units SQ TID *Enoxaparin/Lovenox 40 mg SQ daily (WT < 150 kg, CrCl > 30 mL/min) *Enoxaparin/Lovenox 30 mg SQ daily (WT < 150 kg, CrCl > 10-29 mL/min) *Enoxaparin/Lovenox 30 mg SQ BID (WT < 150 kg, CrCl > 30 mL/min) AND/OR *Sequential Compression Device (SCD) 5 or more Highest Order ONE of the following medications: *Heparin 5000 units SQ TID (Preferred with Epidurals) *Enoxaparin/Lovenox 40 mg SQ daily (WT < 150 kg, CrCl > 30 mL/min) *Enoxaparin/Lovenox 30 mg SQ daily (WT < 150 kg, CrCl > 10-29 mL/min) *Enoxaparin/Lovenox 30 mg SQ BID (WT < 150 kg, CrCl > 30 mL/min) AND *Sequential Compression Device (SCD) Data Data Vital Signs Reviewed: Yes Orders Orders Admit To Inpatient (12/11/16 ) Code Status (12/11/16 11:42) Vital Signs (Adult) .ON ADMISSION (12/11/16 11:42) Activity Oob Ad Deepika (12/11/16 11:42) Heart (12/11/16 11:42) Urinary Catheter Management ANDREA.Q8H (12/11/16 11:42) ^ Preps (12/11/16 11:42) Scd / Lv / Foot Pump ANDREA.QSHIFT (12/11/16 11:42) ^ Ultrasound For Locatio (12/11/16 11:42) Diet Npo (12/11/16 Lunch) Lactated Ringer's 1000 Ml Inj (Lr 1000 M (12/11/16 11:42) Lactated Ringer's 1000 Ml Inj (Lr 1000 M (12/11/16 12:12) Group B Strep: Negative Assessment/Plan Assessment and Plan 31 year old at 39-1/7 weeks gestation. 1. IUP- Category I tracing, reassuring. 2. Repeat . 3. GBS negative. 4. Bipolar disorder- Continue Seroquel, Trazodone and Gabapentin. 5. Hepatitis C- 06/17/16 HCV ab >11, HCV RNA 14,100,000, genotype 3. GI referral in place. 6. Hx IVDU- clean x 2 years. Tobacco 1/2-1 ppd. UDS positive for Marijuana on 09/30/16 and 10/15/16. 7. N/V associated with weight loss in third trimester. dw Soila Baldwin MD, R3 Dec 11, 2016 11:43
[2016-12-11] MEDS ORDERED: MIDAZOLAM HCL 2 MG/2 ML VIAL IV ONE (12:00)
[2016-12-11] MEDS ORDERED: ONDANSETRON HCL 4 MG/2 ML VIAL IV PUSH ONE (12:00)
[2016-12-11] MEDS ORDERED: KETOROLAC TROMETHAMINE 30 MG/ML (IVP) VIAL IV PUSH ONE (12:00)
[2016-12-11] MEDS ORDERED: LACTATED RINGER'S 1000 ML INJ 1,000 ML IV ONE ×2 (12:00)
[2016-12-11] MEDS ORDERED: ePHEDrine/NS 25 MG/5 ML SYR IV ONE (12:00)
[2016-12-11] MEDS ORDERED: PROPOFOL 200 MG/20 ML AMP IV ONE (12:00)
[2016-12-11] MEDS ORDERED: OXYTOCIN 10 UNIT/ML AMP IV ONE (12:00)
[2016-12-11] MEDS ORDERED: MORPHINE SULFATE PF 5 MG/10 ML VIAL ONE (12:00)
[2016-12-11 12:22] LABS: AUTOMATED NEUTROPHIL # 8.3 TH/MM3 (1.8-7.7); BASOPHIL % 0.4 % (0.0-2.0); EOSINOPHIL % 0.3 % (0.0-4.0); HEMATOCRIT 36.6 % (35.0-46.0); HEMO FLAGS DIFF FINAL; LYMPH % 14.3 % (9.0-44.0); LYMPHOCYTE # 1.4 TH/MM3 (1.0-4.8); MEAN CELL VOLUME 89.6 FL (80.0-100.0); MEAN CORPUSCULAR HEMOGLOBIN 30.1 PG (27.0-34.0); MEAN CORPUSCULAR HGB CONC 33.6 % (32.0-36.0); MONO % 3.1 % (0.0-8.0); NEUT % 81.9 % (16.0-70.0); PLATELET COUNT 132 TH/MM3 (150-450); RED BLOOD COUNT 4.09 MIL/MM3 (4.00-5.30); RED CELL DISTRIBUTION WIDTH 14.2 % (11.6-17.2); WHITE BLOOD COUNT 10.1 TH/MM3 (4.0-11.0)
[2016-12-11] MEDS: LACTATED RINGER'S 1000 ML INJ 1,000 ML IV SCH (12:49)
[2016-12-11] MEDS ORDERED: EPIDURAL-DO NOT ADMINISTER ANTICOAGULANTS PRN (13:00)
[2016-12-11] MEDS ORDERED: EPIDURAL-NO SYSTEMIC NARCOTICS PRN (13:00)
[2016-12-11] MEDS ORDERED: HYDROmorphone HCL PF 2 MG/ML VIAL IV PRN (13:00)
[2016-12-11] MEDS ORDERED: EPIDURAL-DIPHENHYDRAMINE HCL 50 MG/ML VIAL IV PUSH PRN (13:00)
[2016-12-11] MEDS ORDERED: EPIDURAL-NALOXONE HCL 0.4 MG/ML AMP IV PUSH PRN (13:00)
[2016-12-11] MEDS ORDERED: EPIDURAL-DIPHENHYDRAMINE HCL 50 MG CAP PO PRN (13:00)
[2016-12-11] MEDS ORDERED: CITRIC ACID-SODIUM CITRATE LIQ 30 ML UDC PO SCH (13:15)
[2016-12-11] MEDS ORDERED: ACETAMINOPHEN 1000 MG/100 ML 100 ML IV ONE (14:01)
[2016-12-11] MEDS ORDERED: ONDANSETRON HCL 4 MG/2 ML VIAL IV PUSH PRN (14:15)
[2016-12-11] MEDS ORDERED: SODIUM CHLORIDE 0.9% FLUSH 10 ML FLUSH IV FLUSH PRN (14:15)
[2016-12-11] MEDS ORDERED: diphenhydrAMINE HCL 25 MG CAP PO PRN (14:15)
[2016-12-11] MEDS ORDERED: SIMETHICONE 80 MG CHEWABLE TAB PO PRN (14:15)
[2016-12-11] MEDS ORDERED: KETOROLAC TROMETHAMINE 60 MG/2 ML (IM) VIAL IM PRN (14:15)
[2016-12-11] MEDS ORDERED: HYDROmorphone HCL PCA 6 MG/30 ML IV SCH (14:15)
[2016-12-11] MEDS ORDERED: HYDROmorphone HCL PF 2 MG/ML VIAL ONE (14:15)
[2016-12-11] MEDS ORDERED: ACETAMINOPHEN 325 MG TAB PO PRN (14:15)
[2016-12-11] MEDS ORDERED: NALOXONE HCL 0.4 MG/ML AMP IV PUSH PRN (14:15)
[2016-12-11] MEDS ORDERED: oxyCODONE/ACETAMINOPHEN 5 MG/325 MG TAB PO PRN (14:15)
[2016-12-11] MEDS ORDERED: PCA - TOTAL MG DILAUDID DELIVERED PER SHIFT OTHER SCH (14:15)
[2016-12-11 14:17] LABS: BLOOD GAS BASE EXCESS -1.9 mmol/L (-2-2); BLOOD GAS O2 HGB SATURATION 36 % (90-100); CORD BLOOD GAS HCO3 23 mmol/L (21-29); CORD BLOOD GAS PCO2 43 mmHG (34-78); CORD BLOOD GAS PH 7.34 (7.14-7.42); CORD BLOOD GAS PO2 20 mmHG (3.0-40.0); DRAW SITE CBB; STAT YES
[2016-12-11] MEDS ORDERED: OXYTOCIN 30 UNITS-500ML PREMIX 500 ML IV ONE (14:30)
[2016-12-11 18:03] LABS: BLOOD, URINE TRACE (NEG); COMMENT (UR) CULT NOT INDICATED; CULTURE IF INDICATED CULT NOT INDICATED; GLUCOSE,URINE NEG (NEG); KETONE, URINE TRACE mg/dL (NEG); NITRITE,URINE NEG (NEG); PH, URINE 7.5 (5.0-8.5); URINE COLOR LIGHT-YELLOW (YELLW/STRAW)
[2016-12-11] MEDS: GABAPENTIN 300 MG CAP PO SCH (18:15)
[2016-12-11] MEDS ORDERED: LACTATED RINGER'S 1000 ML INJ 1,000 ML IV SCH (19:02)
[2016-12-11] MEDS ORDERED: ZOLPIDEM TARTRATE 5 MG TAB PO PRN (21:00)
--- NOTE | 2016-12-11 21:35 | MP ---
cc: AZ VASQUEZ MD DATE OF SURGERY 12/11/16 PREOPERATIVE DIAGNOSIS Previous caesarean section at term for repeat caesarean section POSTOPERATIVE DIAGNOSIS Previous caesarean section at term for repeat caesarean section PROCEDURE Repeat low transverse caesarean section SURGEON Moose Vasquez MD SUPERVIS[employer] [facility], [facility] ANESTHESIA Spinal. PREOPERATIVE NOTE The patient is a 31 year old white female G5,P1 previous caesarean section at 39 weeks who presents for repeat caesarean section. She is followed by [facility] and desires repeat caesarean section. PROCEDURE IN DETAIL The patient was taken to the operating room and placed in supine position on the operating table. Adequate spinal anesthesia was administered. She was prepped and draped for abdominal surgery. The previous Pfannenstiel incision was excised out and cast off. The incision was carried through the fascia sharply and the fascia retracted off the rectus muscle. The peritoneal cavity entered sharply in the midline, incision extended superiorly and inferiorly. The bladder blade was placed in the lower incision, the incision stretched open and the visceral peritoneum reflected off the lower uterine segment, placed on bladder blade. Transverse hysterotomy was made and extended bluntly bilaterally and clear fluid noted. A female infant was delivered at 1:21 p.m., weight 2790 grams, Apgars 8 and 9. There were no complications. Cord gas obtained was 7.34. Cord blood obtained as well. Placenta manually extracted. The hysterotomy closed in a running layer of 0 chromic followed by imbricating suture of same. Hemostasis was achieved with a couple of stick ties. The bladder reapproximated using running 2-0 Vicryl suture. The uterus elevated and blood suctioned from cul-de-sac gutters. The uterus replaced in peritoneal cavity. The muscle then reapproximated with stick ties of 0 chromic. Fascia closed in running layer of 0 Vicryl. Subcutaneous tissue reapproximated with 3-0 plain suture. The skin close with 3-0 Monocryl subcuticular stitch. New seven-day ___ absorbent bandage used on the patient. Estimated blood loss 500 mL. There were no complications. Sponge and needle counts correct times two. The patient to recovery in stable condition. MD CAROLYN Sen/ /2:11 PM /9:12 PM
[2016-12-11] MEDS: oxyCODONE/ACETAMINOPHEN 5 MG/325 MG TAB PO PRN (21:42)
[2016-12-11] MEDS: IBUPROFEN 600 MG TAB PO PRN (21:42)
[2016-12-11] MEDS: DOCUSATE SODIUM 50 MG/SENNA 8.6 MG TAB PO PRN (21:43)
[2016-12-11] MEDS: traZODone HCL 50 MG TAB PO SCH (23:34)
[2016-12-12] VITALS (7 sets, daily range): BP systolic 109–151; BP diastolic 60–83; PULSE 53–62; RESP 16–18; TEMP 97.9–98.4
[2016-12-12] MEDS ORDERED: OXYTOCIN 30 UNITS-500ML PREMIX 500 ML IV PRN (00:15)
[2016-12-12] MEDS: oxyCODONE/ACETAMINOPHEN 5 MG/325 MG TAB PO PRN ×5 (02:39→22:51)
[2016-12-12] MEDS: IBUPROFEN 600 MG TAB PO PRN ×4 (05:09→22:50)
[2016-12-12 05:30] LABS: AUTOMATED NEUTROPHIL # 9.6 TH/MM3 (1.8-7.7); BASOPHIL % 0.2 % (0.0-2.0); EOSINOPHIL # 0.1 TH/MM3 (0-0.4); EOSINOPHIL % 0.6 % (0.0-4.0); HEMATOCRIT 28.9 % (35.0-46.0); HEMO FLAGS DIFF FINAL; LYMPH % 14.2 % (9.0-44.0); LYMPHOCYTE # 1.7 TH/MM3 (1.0-4.8); MEAN CELL VOLUME 90.2 FL (80.0-100.0); MEAN CORPUSCULAR HEMOGLOBIN 30.1 PG (27.0-34.0); MEAN CORPUSCULAR HGB CONC 33.4 % (32.0-36.0); MONO % 4.2 % (0.0-8.0); NEUT % 80.8 % (16.0-70.0); PLATELET COUNT 118 TH/MM3 (150-450); RED BLOOD COUNT 3.21 MIL/MM3 (4.00-5.30); RED CELL DISTRIBUTION WIDTH 13.7 % (11.6-17.2); WHITE BLOOD COUNT 11.8 TH/MM3 (4.0-11.0)
--- NOTE | 2016-12-12 08:18 | HHI.OB ---
Subjective Remarks POD day # 1. No acute issues overnight, vitals are stable, patient remains afebrile. Incision not draining. Decreasing lochia and pain. Patient is ambulating without difficulty and voiding independently. She is feeding the baby via formula until cannabinoids have cleared her system. She denies any nausea or vomiting and has a good appetite. Positive flatus. She denies any calf pain, chest pain, or shortness of breath. She is bonding well with . Objective Vitals/I&O Vital Signs Date Time Temp Pulse Resp B/P (MAP) Pulse Ox O2 Delivery O2 Flow Rate FiO2 12/12/16 04:00 53 18 116/61 (79) 12/12/16 04:00 97.9 12/12/16 04:00 122/77 (92) 12/12/16 01:47 16 12/12/16 01:00 16 12/12/16 00:00 98.3 55 18 109/60 (76) 12/11/16 20:00 96.6 12/11/16 20:00 60 18 126/80 (95) 12/11/16 15:40 97.5 47 18 121/83 (96) 12/11/16 15:00 52 25 152/87 (108) 100 12/11/16 14:45 62 14 152/82 (105) 100 12/11/16 14:30 26 100 12/11/16 14:30 68 139/67 (91) 12/11/16 14:15 119 24 141/73 (95) 100 12/11/16 14:00 100 12/11/16 14:00 72 18 147/86 (106) 12/11/16 14:00 97.7 12/11/16 12:25 67 12/11/16 12:20 71 12/11/16 12:15 69 12/11/16 12:00 98.0 16 12/11/16 11:55 78 12/11/16 11:50 74 12/11/16 11:49 78 128/67 (87) Result Diagram: 12/12/16 0456 Objective Remarks GENERAL: Well-nourished, well-developed patient. CARDIOVASCULAR: Regular rate and rhythm without murmurs, gallops, or rubs. RESPIRATORY: Breath sounds equal bilaterally. No accessory muscle use. ABDOMEN/GI: Abdomen soft, non-tender, bowel sounds present. Incision: Clean, dry and intact. Fundus: Firm, non-tender at umbilicus. GENITOURINARY: Light to moderate bleeding. EXTREMITIES: No cyanosis or edema, non-tender, without signs of DVT. Medications and IVs Current Medications Medications (Trade) Dose Ordered Sig/Marcela Route Start Time Stop Time Status Last Admin Lactated Ringer's 1,000 ml @ 150 mls/hr Q6H40M IV 12/11/16 13:00 12/11/16 12:49 (Bicitra Liq) 30 ml EDUCATIONAL THERAPIST PO 12/11/16 13:15 12/15/16 13:14 12/11/16 12:35 Cefazolin Sodium 1000 mg/Sodium Chloride 100 ml @ 200 mls/hr EDUCATIONAL THERAPIST IV 12/11/16 12:45 12/15/16 12:44 12/11/16 12:42 Lactated Ringer's 1,000 ml @ 100 mls/hr Q10H IV 12/11/16 19:02 12/12/16 15:01 12/11/16 20:00 Oxytocin 500 ml @ 100 mls/hr UNSCH X1 PRN IV 12/12/16 00:15 12/13/16 00:14 (NS Flush) 2 ml BID IV FLUSH 12/11/16 21:00 (NS Flush) 2 ml UNSCH PRN IV FLUSH 12/11/16 14:15 (Mylicon Chew) 80 mg QID PRN PO 12/11/16 14:15 (Tylenol) 650 mg Q6H PRN PO 12/11/16 14:15 (Motrin) 600 mg Q6H PRN PO 12/11/16 14:15 12/12/16 05:09 (Toradol Inj) 60 mg UNSCH X1 PRN IM 12/11/16 14:15 12/12/16 14:14 12/11/16 18:15 (Percocet 5-325 Mg) 1 tab Q4H PRN PO 12/11/16 14:15 (Percocet 5-325 Mg) 2 tab Q4H PRN PO 12/11/16 14:15 12/12/16 06:29 (Vivian-Colace) 2 tab Q12H PRN PO 12/11/16 14:15 12/11/16 21:43 (Ambien) 5 mg HS PRN PO 12/11/16 21:00 (M-M-R Ii Inj) 0.5 ml ONCE ONCE SQ 12/12/16 16:00 12/12/16 16:01 (Boostrix Inj) 0.5 ml ONCE ONCE IM 12/12/16 16:00 12/12/16 16:01 (Zofran Inj) 4 mg Q6H PRN IV PUSH 12/11/16 14:15 (Neurontin) 300 mg TID PO 12/11/16 18:00 12/11/16 18:15 (Protonix) 40 mg DAILY PO 12/12/16 09:00 (Desyrel) 50 mg HS PO 12/11/16 21:00 12/11/16 23:34 Patient Own Medication PT OWN MED: PNV PRENA... DAILY PO 12/12/16 09:00 Future Hold Patient Own Medication PT OWN MED: SEROQUEL (QUETIAPI... DAILY PO 12/12/16 09:00 Future Hold Miscellaneous Information NO SYSTEMIC NARCOTICS TO BE GIVEN FO... UNSCH PRN .XX 12/11/16 13:00 12/12/16 12:59 (Narcan Inj) 0.4 mg UNSCH PRN IV PUSH 12/11/16 13:00 12/12/16 12:59 (Benadryl Inj) 25 mg Q6H PRN IV PUSH 12/11/16 13:00 12/12/16 12:59 (Benadryl) 50 mg Q6H PRN PO 12/11/16 13:00 12/12/16 12:59 Miscellaneous Information ALL NURSING DEPARTMENTS UNSCH PRN .XX 12/11/16 13:00 12/12/16 12:59 (Habitrol 14 Mg Patch.24 Hr) 1 patch DAILY T-DERMAL 12/12/16 09:00 Miscellaneous Information 1 DAILY T-DERMAL 12/12/16 09:00 (Dilaudid Pf Inj) 1 mg Q4H PRN IV PUSH 12/12/16 08:15 UNV Assessment/Plan Assessment and Plan 31 y/o female who is POD# 1 s/p CXN. -Continue routine care. - Post-op Hgb stable at 9.7. -Bipolar disorder- Continue Seroquel, Trazodone and Gabapentin. - Hepatitis C- 06/17/16 HCV ab >11, HCV RNA 14,100,000, genotype 3. GI referral in place. - Hx IVDU- clean x 2 years. Tobacco 1/2-1 ppd. UDS positive for benzos, opiates and cannabinoids on admission. Appears to have received one dose of opiates prior to UDS on admission. -Percocet and Motrin PRN pain. Dilaudid PRN breakthrough pain. -Encouraged OOB. Advised pelvic rest for 6 wks. Will need a f/u appt. in 1 wk for incision check. -Re: ctrl, she would like to consider her options. - Discharge home in 1-[address] MD, R3 Dec 12, 2016 08:18
[2016-12-12] MEDS: NICOTINE 14 MG/24 HR PATCH T-DERMAL SCH (08:30)
[2016-12-12] MEDS: PANTOPRAZOLE SOD 40 MG DELAYED RELEASE TAB PO SCH (08:31)
[2016-12-12] MEDS: GABAPENTIN 300 MG CAP PO SCH ×3 (08:31→19:04)
[2016-12-12] MEDS ORDERED: REMOVE OLD PATCH T-DERMAL SCH (09:00)
[2016-12-12] MEDS ORDERED: SEROQUEL 300 MG PO SCH (09:00)
[2016-12-12] MEDS ORDERED: [UNRECOGNIZED DRUG - OTHER] PO SCH (09:00)
[2016-12-12] MEDS: HYDROmorphone HCL PF 1 MG/ML VIAL IV PUSH PRN ×3 (09:42→19:50)
[2016-12-12] MEDS ORDERED: MEASLES, MUMPS, RUBELLA VACCINE 0.5 ML VIAL SQ ONE (16:00)
[2016-12-12] MEDS ORDERED: DIPHTH/TETANUS/ACEL PERTUSSIS (BOOSTER) 0.5 ML VIAL/PFS IM ONE (16:00)
[2016-12-13] MEDS: traZODone HCL 50 MG TAB PO SCH (00:08)
[2016-12-13] MEDS: HYDROmorphone HCL PF 1 MG/ML VIAL IV PUSH PRN ×4 (04:38→21:34)
[2016-12-13] MEDS: PANTOPRAZOLE SOD 40 MG DELAYED RELEASE TAB PO SCH (07:53)
[2016-12-13] MEDS: GABAPENTIN 300 MG CAP PO SCH ×3 (07:53→16:53)
[2016-12-13] MEDS: IBUPROFEN 600 MG TAB PO PRN ×3 (07:53→21:33)
[2016-12-13] MEDS: NICOTINE 14 MG/24 HR PATCH T-DERMAL SCH (07:54)
[2016-12-13] MEDS: DOCUSATE SODIUM 50 MG/SENNA 8.6 MG TAB PO PRN ×2 (07:54→21:32)
[2016-12-13] MEDS: oxyCODONE/ACETAMINOPHEN 5 MG/325 MG TAB PO PRN ×3 (07:55→18:54)
[2016-12-13 08:00] VITALS: BP 138/78; PULSE 68; RESP 17; TEMP 98.6
--- NOTE | 2016-12-13 11:15 | HHI.OB ---
Subjective Remarks 31 year old female s/p C/S at 39 wks gestation, POD 2. AFVSS. Patient reports she is feeling well. Bleeding is decreasing and pain is well-controlled with Percocet and Dilaudid. She is formula feeding and bonding well with baby. Ambulating without difficulties. She is tolerating a diet without nausea or vomiting. She has not had a bowel movement. She has passed gas. Denies chest pain, dysuria, shortness of breath, or calf pain. (Chase Choudhury MD R2) Remarks Patient seen and evaluated with resident under direct supervision, agree with assessment and plan. (Enmanuel Quinonez MD) Objective Vitals/I&O Vital Signs Date Time Temp Pulse Resp B/P (MAP) Pulse Ox O2 Delivery O2 Flow Rate FiO2 12/12/16 20:00 62 18 145/83 (103) 12/12/16 20:00 98.2 12/12/16 12:00 98.4 57 18 151/79 (103) (Chase Choudhury MD R2) Result Diagram: 12/12/16 0456 Objective Remarks GENERAL: Well-nourished, well-developed patient. CARDIOVASCULAR: Regular rate and rhythm without murmurs, gallops, or rubs. RESPIRATORY: Breath sounds equal bilaterally. No accessory muscle use. ABDOMEN/GI: Abdomen soft, non-tender, bowel sounds present. Incision: Clean, dry and intact. Fundus: Firm, mildly tender at umbilicus. GENITOURINARY: Light to moderate bleeding. EXTREMITIES: No cyanosis or edema, non-tender, without signs of DVT. Medications and IVs Current Medications Medications (Trade) Dose Ordered Sig/Marcela Route Start Time Stop Time Status Last Admin Lactated Ringer's 1,000 ml @ 150 mls/hr Q6H40M IV 12/11/16 13:00 12/11/16 12:49 (Bicitra Liq) 30 ml FOOD SAFETY AUDITOR PO 12/11/16 13:15 12/15/16 13:14 12/11/16 12:35 Cefazolin Sodium 1000 mg/Sodium Chloride 100 ml @ 200 mls/hr FOOD SAFETY AUDITOR IV 12/11/16 12:45 12/15/16 12:44 12/11/16 12:42 (NS Flush) 2 ml BID IV FLUSH 12/11/16 21:00 (NS Flush) 2 ml UNSCH PRN IV FLUSH 12/11/16 14:15 (Mylicon Chew) 80 mg QID PRN PO 12/11/16 14:15 (Tylenol) 650 mg Q6H PRN PO 12/11/16 14:15 (Motrin) 600 mg Q6H PRN PO 12/11/16 14:15 12/13/16 07:53 (Percocet 5-325 Mg) 1 tab Q4H PRN PO 12/11/16 14:15 (Percocet 5-325 Mg) 2 tab Q4H PRN PO 12/11/16 14:15 12/13/16 07:55 (Vivian-Colace) 2 tab Q12H PRN PO 12/11/16 14:15 12/13/16 07:54 (Ambien) 5 mg HS PRN PO 12/11/16 21:00 (Zofran Inj) 4 mg Q6H PRN IV PUSH 12/11/16 14:15 (Neurontin) 300 mg TID PO 12/11/16 18:00 12/13/16 07:53 (Protonix) 40 mg DAILY PO 12/12/16 09:00 12/13/16 07:53 (Desyrel) 50 mg HS PO 12/11/16 21:00 12/13/16 00:08 Patient Own Medication PT OWN MED: PNV PRENA... DAILY PO 12/12/16 09:00 Future Hold Patient Own Medication PT OWN MED: SEROQUEL (QUETIAPI... DAILY PO 12/12/16 09:00 Future Hold (Habitrol 14 Mg Patch.24 Hr) 1 patch DAILY T-DERMAL 12/12/16 09:00 12/13/16 07:54 Miscellaneous Information 1 DAILY T-DERMAL 12/12/16 09:00 (Dilaudid Pf Inj) 1 mg Q4H PRN IV PUSH 12/12/16 08:15 12/13/16 11:08 (Chase Choudhury MD R2) Assessment/Plan Assessment and Plan 31 y/o female who is POD# 2 s/p CXN. -Continue routine care. - Post-op Hgb stable at 9.7 - Bipolar disorder- Continue Seroquel, Trazodone and Gabapentin. - Hepatitis C- 4/5/17 HCV ab >11, HCV RNA 14,100,000, genotype 3. GI referral in place. - Hx IVDU- clean x 2 years. Tobacco /2-1 ppd. UDS positive for benzos, opiates and cannabinoids on admission. Appears to have received one dose of opiates prior to UDS on admission. -Percocet and Motrin PRN pain. Dilaudid PRN breakthrough pain. -Encouraged OOB. Advised pelvic rest for 6 wks. Will need a f/u appt. in 1 wk for incision check. -Re: ctrl, she would like to consider her options. -Discharge home 12/14 (Chase Choudhury MD R2) Chase Choudhury MD R2 Dec 13, 2016 11:15 Enmanuel Quinonez MD Dec 19, 2016 10:07
[2016-12-13] MEDS: LACTATED RINGER'S 1000 ML INJ 1,000 ML IV SCH (18:20)
[2016-12-13] MEDS: SODIUM CHLORIDE 0.9% FLUSH 10 ML FLUSH IV FLUSH SCH (21:32)
[2016-12-13 21:34] VITALS: BP 128/78; PULSE 78; RESP 20; TEMP 98.4
[2016-12-14] MEDS: traZODone HCL 50 MG TAB PO SCH (00:06)
[2016-12-14] MEDS: oxyCODONE/ACETAMINOPHEN 5 MG/325 MG TAB PO PRN ×3 (00:06→09:56)
[2016-12-14] MEDS: LACTATED RINGER'S 1000 ML INJ 1,000 ML IV SCH ×2 (00:07→06:23)
[2016-12-14] MEDS: IBUPROFEN 600 MG TAB PO PRN ×2 (06:11→12:50)
[2016-12-14] MEDS ORDERED: OXYC1TAB63 PO (07:28)
[2016-12-14] MEDS ORDERED: IBUP-232 PO (07:28)
[2016-12-14] MEDS ORDERED: SENN1TAB PO (07:28)
[2016-12-14] MEDS ORDERED: BREAST PUMP1 MI1 (07:29)
[2016-12-14] MEDS ORDERED: HYDROmorphone HCL 2 MG TAB PO PRN (07:45)
--- NOTE | 2016-12-14 07:58 | HHI.DCPOC ---
Discharge Care Plan Diagnosis: (1) delivery delivered Report Symptoms to Your Doctor -Temperature above 100.5 degrees -Redness, of incision or excessive or foul smelling drainage -Unusual pain or calf pain -Increased vaginal bleeding -Painful or difficulty urinating -Feelings of extreme sadness or anxiety after 2 weeks Goals to Promote Your Health * To prevent worsening of your condition and complications * To maintain your health at the optimal level Directions to Meet Your Goals Take your medications as prescribed Follow your dietary instruction Follow activity as directed Ensure plenty of rest for recovery Drink fluids for hydration Keep your appointments as scheduled Take your immunizations and boosters as scheduled If your symptoms worsen call your PCP, if no PCP go to Urgent Care Center or Emergency Room Smoking is Dangerous to Your Health. Avoid second hand smoke Call the 24-hour crisis hotline for domestic abuse at Soila Montilla MD, R3 Dec 14, 2016 07:58
[2016-12-14] MEDS: SODIUM CHLORIDE 0.9% FLUSH 10 ML FLUSH IV FLUSH SCH (07:59)
[2016-12-14 08:00] VITALS: BP 126/78; PULSE 54; RESP 22; TEMP 98.1
[2016-12-14] MEDS: GABAPENTIN 300 MG CAP PO SCH ×2 (08:00→12:49)
[2016-12-14] MEDS: PANTOPRAZOLE SOD 40 MG DELAYED RELEASE TAB PO SCH (08:00)
[2016-12-14] MEDS: NICOTINE 14 MG/24 HR PATCH T-DERMAL SCH (08:00)
--- NOTE | 2016-12-14 08:02 | HHI.OB ---
Subjective Remarks POD day # 3. No acute issues overnight, vitals are stable, patient remains afebrile. Incision not draining. Decreasing lochia and pain. Patient is ambulating without difficulty and voiding independently. She is feeding the baby via formula until cannabinoids have cleared her system. She denies any nausea or vomiting and has a good appetite. Positive flatus. She denies any calf pain, chest pain, or shortness of breath. She is bonding well with infant. Objective Vitals/I&O Vital Signs Date Time Temp Pulse Resp B/P (MAP) Pulse Ox O2 Delivery O2 Flow Rate FiO2 12/13/16 21:34 98.4 78 20 128/78 (95) Result Diagram: 12/12/16 0456 Objective Remarks GENERAL: Well-nourished, well-developed patient. CARDIOVASCULAR: Regular rate and rhythm without murmurs, gallops, or rubs. RESPIRATORY: Breath sounds equal bilaterally. No accessory muscle use. ABDOMEN/GI: Abdomen soft, non-tender, bowel sounds present. Incision: Clean, dry and intact. Fundus: Firm, mildly tender at umbilicus. GENITOURINARY: Light to moderate bleeding. EXTREMITIES: No cyanosis or edema, non-tender, without signs of DVT. Medications and IVs Current Medications Medications (Trade) Dose Ordered Sig/Marcela Route Start Time Stop Time Status Last Admin Lactated Ringer's 1,000 ml @ 150 mls/hr Q6H40M IV 12/11/16 13:00 12/11/16 12:49 (Bicitra Liq) 30 ml INGREDIENT MIXER PO 12/11/16 13:15 12/15/16 13:14 12/11/16 12:35 Cefazolin Sodium 1000 mg/Sodium Chloride 100 ml @ 200 mls/hr INGREDIENT MIXER IV 12/11/16 12:45 12/15/16 12:44 12/11/16 12:42 (NS Flush) 2 ml BID IV FLUSH 12/11/16 21:00 12/13/16 21:32 (NS Flush) 2 ml UNSCH PRN IV FLUSH 12/11/16 14:15 (Mylicon Chew) 80 mg QID PRN PO 12/11/16 14:15 (Tylenol) 650 mg Q6H PRN PO 12/11/16 14:15 (Motrin) 600 mg Q6H PRN PO 12/11/16 14:15 12/14/16 06:11 (Percocet 5-325 Mg) 1 tab Q4H PRN PO 12/11/16 14:15 (Percocet 5-325 Mg) 2 tab Q4H PRN PO 12/11/16 14:15 12/14/16 06:12 (Vivian-Colace) 2 tab Q12H PRN PO 12/11/16 14:15 12/13/16 21:32 (Ambien) 5 mg HS PRN PO 12/11/16 21:00 (Zofran Inj) 4 mg Q6H PRN IV PUSH 12/11/16 14:15 (Neurontin) 300 mg TID PO 12/11/16 18:00 12/13/16 16:53 (Protonix) 40 mg DAILY PO 12/12/16 09:00 12/13/16 07:53 (Desyrel) 50 mg HS PO 12/11/16 21:00 12/14/16 00:06 Patient Own Medication PT OWN MED: PNV PRENA... DAILY PO 12/12/16 09:00 Future Hold Patient Own Medication PT OWN MED: SEROQUEL (QUETIAPI... DAILY PO 12/12/16 09:00 Future Hold (Habitrol 14 Mg Patch.24 Hr) 1 patch DAILY T-DERMAL 12/12/16 09:00 12/13/16 07:54 Miscellaneous Information 1 DAILY T-DERMAL 12/12/16 09:00 (Dilaudid) 1 mg Q6H PRN PO 12/14/16 07:45 UNV Assessment/Plan Assessment and Plan 31 y/o female who is POD# 3 s/p CXN. -Continue routine care. - Post-op Hgb stable at 9.7 - Bipolar disorder- Continue Seroquel, Trazodone and Gabapentin. - Hepatitis C- 06/17/16 HCV ab >11, HCV RNA 14,100,000, genotype 3. GI referral in place. - Hx IVDU- clean x 2 years. Tobacco 1/2-1 ppd. UDS positive for benzos, opiates and cannabinoids on admission. Appears to have received one dose of opiates prior to UDS on admission. -Percocet and Motrin PRN pain. Dilaudid PRN breakthrough pain. -Encouraged OOB. Advised pelvic rest for 6 wks. Will need a f/u appt. in 1 wk for incision check. -Re: ctrl, she would like to consider her options, will discuss more at follow-up appointment in 1 week. -Discharge home today dw Soila Baldwin MD, R3 Dec 14, 2016 08:02
[2016-12-14] MEDS ORDERED: PILL SPLITTER OTHER PRN (08:15)
[2016-12-17 08:54] LABS: BATH SALTS (MDPV) UR NEG (NEG); ECSTASY (MDMA) UR NEG (NEG); HEROIN (6-ACETYLMORPHINE) UR NEG (NEG); K2 SPICE UR NEG (NEG); OBMETHADONE UR NEG (NEG); PHENCYCLIDINE URINE NEG (NEG)
[2016-12-17 08:59] LABS: GABAPENTIN UR POS (NEG)
[2016-12-17 09:00] LABS: HYDROMORPHONE U POS (NEG)
[2016-12-23] MEDS ORDERED: LITH300C2 PO (10:48)
[2016-12-23] MEDS ORDERED: GABA800T PO (10:51)
[2016-12-23] MEDS ORDERED: NORE1TAB PO (10:53)
== END 2016-12-14 15:32 | disposition home or self-care (01) | DRG 765 ==
LOC: H2EB 10:40 → H1EA 15:16
PROVIDERS: ADMIT Obstetrics & Gynecology Maternal & Fetal Medicine; ATTEND Obstetrics & Gynecology Maternal & Fetal Medicine
PROC: 10D00Z1 Extraction of Products of Conception, Low, Open Approach (ICD-10-PCS; principal; 2016-12-11)
DX: O34.211 Maternal care for low transverse scar from previous cesarean delivery (principal); O98.42 Viral hepatitis complicating childbirth; F31.9 Bipolar disorder, unspecified; Z37.0 Single live birth; Z3A.39 39 weeks gestation of pregnancy; O99.344 Other mental disorders complicating childbirth; B19.20 Unspecified viral hepatitis C without hepatic coma; O99.334 Smoking (tobacco) complicating childbirth; F17.210 Nicotine dependence, cigarettes, uncomplicated
CPT/HCPCS: 59025; 80307; 81001; 82805; 85025; 86850; 86900; 86901; G0481; J0131; J0690; J1170; J1885; J2250; J2274; J2405; J2590; J3010; J7120

== ENCOUNTER 2017-07-16 22:03 | Emergency (ER) | payer SELFPAY ==
[~2017-07-16] VITALS: Ht 167.6 cm; Wt 65.0 kg
[~2017-07-16 22:03] MED LIST changes: +BREAST PUMP1 MI1; -GABA300C5 PO; +GABA800T PO; +IBUP-232 PO; -LACT10SO5 PO; +LITH300C2 PO; -MAPA650T PO; +NORE1TAB PO; -ONDA1TAB17 PO; -PANT40TA3 PO; -QUET-89 PO; +SENN1TAB PO; -TRAZ50TA12 PO
[2017-07-16 22:07] VITALS: BP 144/72; PULSE 88; RESP 20; TEMP 98; O2SAT 98
== END 2017-07-17 01:01 | disposition left against medical advice (07) ==
LOC: NEPC 22:03
DX: R56.9 Unspecified convulsions (principal); Z53.21 Procedure and treatment not carried out due to patient leaving prior to being seen by health care provider
CPT/HCPCS: 99281